=== PATIENT | male | born 2000 | race Caucasian/White ===

== ENCOUNTER 2018-05-05 21:57 | Emergency (ER) | payer OTHER ==
[~2018-05-05] VITALS: Ht 162.6 cm; Wt 68.0 kg
[2018-05-05 22:21] VITALS: BP 132/79
[2018-05-05] MEDS ORDERED: KETOROLAC 30 MG/ML VIAL IM ONE (23:20)
[2018-05-05 23:56] VITALS: BP 113/69
== END 2018-05-05 23:56 | disposition home or self-care (01) ==
LOC: MED 21:57
DX: S39.011A Strain of muscle, fascia and tendon of abdomen, initial encounter (principal); R35.0 Frequency of micturition; X58.XXXA Exposure to other specified factors, initial encounter; Y93.B9 Activity, other involving muscle strengthening exercises; Y92.89 Other specified places as the place of occurrence of the external cause; Y99.8 Other external cause status
CPT/HCPCS: 96372; 99283; J1885